=== PATIENT | female | born 1975 | race Caucasian/White ===

== ENCOUNTER 2022-06-11 14:07 | Outpatient (REF) | payer OTHER, SELFPAY ==
[2022-06-14 03:27] LABS: TS Negative Control Passed; TS Panel A 3; TS Panel B 0; TS Positive Control Passed; TSpotTB Negative (Negative)
== END 2022-06-11 14:08 | disposition home or self-care (01) ==
LOC: HO.LAB 14:07
PROVIDERS: PCP Internal Medicine; Visit Provider Internal Medicine
DX: Z11.1 Encounter for screening for respiratory tuberculosis (principal)
CPT/HCPCS: 36415; 86481

== ENCOUNTER 2024-01-20 14:50 | Outpatient (REF) | payer OTHER, SELFPAY ==
--- NOTE | ~2024-01-20 | XR_ITS ---
EXAMINATION: XR KNEE, LEFT CLINICAL INFORMATION: Patient states chronic knee pain for a couple of years, no injury. COMPARISON: None available. TECHNIQUE: 3 views of the left knee. FINDINGS: Mild narrowing of the medial compartment. Small medial marginal osteophytes. Small joint effusion. XR/XR knee LT 3V IMPRESSION: Mild degenerative changes.
[2024-01-20 16:20] LABS: Thyroid Stimulating Hormone 3.18 uIU/mL (0.32-4.0)
[2024-01-22 21:58] LABS: TS Negative Control Passed; TS Panel A 2; TS Panel B 5; TS Positive Control Passed; TSpotTB Borderline (Negative)
== END 2024-01-20 14:51 | disposition home or self-care (01) ==
LOC: HO.LAB 14:50
PROVIDERS: PCP Internal Medicine; Visit Provider Internal Medicine
DX: M17.12 Unilateral primary osteoarthritis, left knee (principal); E03.9 Hypothyroidism, unspecified; E66.9 Obesity, unspecified; F32.5 Major depressive disorder, single episode, in full remission
CPT/HCPCS: 36415; 73562; 84443; 86481

== ENCOUNTER 2024-10-05 11:27 | Day surgery (SDC) | payer OTHER, SELFPAY ==
--- OUTSIDE RECORDS SUMMARY | 2024-09-02 12:06 | XMS_ITS | Patient Health Record ---
Author Organization [facility] Address [address] [place] [address] Care Team Providers Care Sock And Stocking Ironer Name Role Phone Devora Navas Primary Care Provider Martin Burgos Unavailable [phone] ALLERGIES No Known Allergies REASON FOR REFERRAL No Information MEDICATIONS Medication SIG (Take, Route, Frequency, Duration) Notes Start Date End Date Status Sertraline HCl 100 MG Oral for 90 Active Levothyroxine Sodium 112 MCG Oral for 90 Active SOCIAL HISTORY Tobacco Use: Social History Observation Description Date Details (start date - stop date) Never Smoker NA - NA Sex Assigned At : Social History Observation Description Sex Assigned At Unknown Tobacco Use/Smoking Question Answer Notes Patient is a nonsmoker Alcohol Screen Question Answer Notes Did you have a drink containing alcohol in the p ast year? No Points 0 Interpretation Negative PROBLEMS Problem Type ICD Code Onset Dates Problem Status W/U Status Risk SNOMED Code Notes Problem Colon cancer screening (Z12.11) Active confirmed Colon cancer screening (870301141) Problem Encounter for other preprocedural examination (Z01.818) Active confirmed Pre-procedure evaluation check (934849911) VITAL SIGNS Blood pressure diastolic 00 mm Hg 07/14/2024 Height 5 ft 3 in in 07/14/2024 Blood pressure systolic 00 mm Hg 07/14/2024 Weight 176 lbs 07/14/2024 BMI 31.17 kg/m2 07/14/2024 Encounters Encounter Location Date Provider Diagnosis [facility] [address] [place] [address] 02/27/2024 Martin Wang [facility] [address] [place] [address] 07/14/2024 Martin Wang Colon cancer screeni ng Z12.11 and Encounter for other preprocedural examination Z01.818 [facility] [address] [place] [address] 02/25/2024 Martin Wang ASSESSMENTS Encounter Date Diagnosis Assessment Notes Treatment Notes Treatment Clinical Notes 07/14/2024 Colon cancer screening (ICD-10 - Z12.11) 07/14/2024 Encounter for other preprocedural examination (ICD-10 - Z01.818) PLAN OF TREATMENT Future Test Test Name Order Date COLONOSCOPY 07/14/2024 Next Appt Details Provider Name:Martin Wang , 10/05/2024 12:50:00 PM, [address] [facility] , [place], [place], [phone], Insurance Providers Payer Name Payer Address Payer Phone Subscriber Number Group Number Insured Name Patient Relationship to Insured Coverage Start Date Coverage End Date [facility] [address] [address] [place], [place] [id number] BETY CARRANZA Self - patient is the insured MEDICAID OF [facility] [address] [place] [address] [id number] BETY CARRANZA Self - patient is the insured MEDICAL (GENERAL) HISTORY Medical History History ICD Code Denies LA,DM,CVA,Lung disease,renal dise ase Hypothyroidism Anxiety Surgical History Surgery Date(Month/Year)
--- OUTSIDE RECORDS SUMMARY | 2024-09-02 12:07 | XMS_ITS ---
Author Organization [facility] Address [address] [place] [address] Care Team Providers Care Steam Flattener Name Role Phone Devora Navas Primary Care Provider Unavailab Martin Paul Unavailable [phone] REASON FOR VISIT Patient presents today for a colon screening Encounters Encounter Location Date Provider Diagnosis [facility] [address] [place] [address] 02/27/2024 Martin Wang PLAN OF TREATMENT Next Appt Details Provider Name:Martin Wang , 10/05/2024 12:50:00 PM, [address] [place] [address] , [place], [place], [phone],
--- OUTSIDE RECORDS SUMMARY | 2024-09-02 12:07 | XMS_ITS ---
Author Organization [facility] Address [address] [place] [address] Care Team Providers Care Continuous Loft Operator Name Role Phone Devora Navas Primary Care Provider Unavailab Martin Paul Unavailable [phone] REASON FOR VISIT new pt appt Encounters Encounter Location Date Provider Diagnosis [facility] [address] [place] [address] 02/25/2024 Martin Wang PLAN OF TREATMENT Next Appt Details Provider Name:Martin Wang , 10/05/2024 12:50:00 PM, [address] [place] [address] , [place], [place], [phone],
--- OUTSIDE RECORDS SUMMARY | 2024-09-02 12:07 | XMS_ITS | Patient Health Record ---
Author Organization [facility] Address [address] [place] [address] Care Team Providers Care Electric Power Machine Operator Name Role Phone Devora Navas Primary Care Provider Unavailab le Reason For Referral No Information Medications Medication SIG (Take, Route, Frequency, Duration) Notes Start Date End Date Status Brewster 3 Not-Taking Phentermine HCl 30 MG 1 capsule Orally Once a day for 28 days 04/15/2019 Not-Taking Probiotic Active Vitamin B 12 Active Levothyroxine Sodium 88 MCG 1 tablet on an empty stomach in the morning Orally Once a day for 30 day(s) Service Delivery Management Consultant Active Sertraline HCl 100 MG 1 tablet Orally Once a day for 30 day(s) Active Topamax 50 MG 1 tablet Orally bid for 30 day(s) 02/15/2020 Active Topamax 25 MG 1 tablet Orally bid for 30 day(s) Not-Taking Phentermine HCl 37.5 MG 1 tablet Orally Once a day for 28 days 02/15/2020 Active Social History Tobacco Use: Social History Observation Description Date Details (start date - stop date) Never Smoker NA - NA Tobacco Use/Smoking Question Answer Notes Are you a nonsmoker Alcohol Screen (Audit-C) Question Answer Notes Did you have a drink containing alcohol in the p ast year? No Points 0 Interpretation Negative Problems Problem Type SNOMED Code ICD Code Onset Dates Problem Status W/U Status Risk Notes Problem Hypothyroidism (63152168) Hypothyroidism, unspecified (E03.9) Active confirmed Problem Generalized anxiety disorder (28155547) Generalized anxiety disorder (F41.1) Active confirmed Problem BMI 25-29 - overweight (218417648) Body mass index (BMI) 29.0-29.9, adult (Z68.29) Active confirmed Plan Of Treatment No Information Insurance Providers Payer Name Payer Address Payer Phone Subscriber Number Group Number Insured Name Patient Relationship to Insured Coverage Start Date Coverage End Date [facility] Plan I [address] [address] [place] [address] [phone] [id number] Rosalind Clarke Self - patient is the insured [place] [address] [place] [phone] [id number] Rosalind Clarke Self - patient is the insured Medical (General) History Surgical History Surgery Date(Month/Year) Hospitalization History Reason Date(Month/Year)
--- OUTSIDE RECORDS SUMMARY | 2024-09-02 12:07 | XMS_ITS ---
Author Organization [facility] Address [address] [place] [address] Care Team Providers Care Foster Winder Name Role Phone Devora Navas Primary Care Provider Unavailab Martin Paul [phone] ALLERGIES No Known Allergies REASON FOR VISIT patient presents today for discuss colonoscopy MEDICATIONS Medication SIG (Take, Route, Frequency, Duration) [...] screening (Z12.11) Active confirmed Colon cancer screening (123293534) Problem Encounter for other preprocedural examination (Z01.818) Active confirmed Pre-procedure evaluation check (623172018) VITAL SIGNS Blood pressure systolic 00 mm Hg 07/14/19 25 Blood pressure diastolic 00 mm Hg 025 Height 5 ft 3 in in 07/14/2024 Weight 176 lbs 07/14/2024 BMI 31.17 kg/m2 07/14/2024 Encounters Encounter Location Date Provider Diagnosis [facility] [address] [place] [address] 07/14/2024 Martin Wang Colon cancer screeni ng Z12.11 and Encounter for other preprocedural examination Z01.818 ASSESSMENTS Encounter Date Diagnosis Assessment Notes Treatment Notes Treatment Clinical Notes 07/14/2024 Colon cancer screening (ICD-10 - Z12.11) 07/14/2024 Encounter for other preprocedural examination (ICD-10 - Z01.818) PLAN OF TREATMENT Future Test Test Name Order Date COLONOSCOPY 07/14/2024 Next Appt Details Follow Up: prn, Reason: Provider Name:Martin Wang , 10/05/2024 12:50:00 PM, [address] [place] [address], [phone], Progress Notes * Examination Category Sub-Category Detail Notes General Examination GENERAL APPEARANCE: pleasant , well nourished, well developed, in no acute distress HEAD: EYES: sclera non-icteric EARS: NOSE: THROAT: NECK/THYROID: no cervical lymphade nopathy, neck supple HEART: S1, S2 normal CHEST: LUNGS: clear to auscultatio n bilaterally ABDOMEN: normal bowel sounds, no guarding or rigidity, no guarding or rigidity, no masses palpable, soft, nontender, nondistended NEUROLOGIC: alert and oriented SKIN: nonjaundiced, no spi wayne angiomata EXTREMITIES: no edema PERIPHERAL PULSES: BACK: BREASTS: MUSCULOSKELETAL: MALE GENITOURINARY: LYMPH NODES: RECTAL EXAM: FEMALE GENITOURINARY: ORAL CAVITY: mucosa moist
[2024-10-01 13:31] VITALS: BMI 31.2
--- NOTE | 2024-10-02 09:26 | HO.ANESPROP2 ---
Documented by User: Shraddha Juárez NP 10/02/24 09:27 HPI - Anesthesia Eval Consult details Narrative: 49yo F for Colonoscopy [facility] Past Medical History Medical History Menopause Anxiety Hypothyroid Surgical History Surgical History No pertinent past surgical history Social History Social History Household Members Other:: mother and daughter Housing Other:: [facility] Are you a primary patient care director to a significant other at home: No Do you presently have visiting nurse or other home services: No Patient Tobacco Use Status: Never used Tobacco Have you been hit, kicked, punched, or otherwise hurt by someone within the past year? If so, by whom?: No Are you DNR?: No Advance Directives: No Advance Directives Information Provided: Yes Recently lost weight without trying: No Nutrition Risks: No Nutritional Risk Patient : No Meds Allergies Allergy/AdvReac Type Severity Reaction Status Date / Time No Known Allergies Allergy Verified 10/01/24 13:32 Home Medications ?Medication ?Instructions ?Recorded ?Confirmed ?Last Taken ?Type levothyroxine 112 mcg tablet 112 mcg PO DAILY 10/01/24 10/01/24 Unknown History phentermine 37.5 mg capsule 37.5 mg PO DAILY 10/01/24 10/01/24 Unknown History sertraline 100 mg tablet 100 mg PO DAILY 10/01/24 10/01/24 Unknown History Exam Height,Weight and Vital Signs: Height 5 ft 3 in Weight 79.832 kg Assessment and Plan Assessment Anesthesia Assessment: Chart Reviewed Documented by User: Maru Pittman MD 10/05/24 12:10 [facility] Past Medical History Medical History Menopause Anxiety Hypothyroid Family History Family history of problems with anesthesia: No Surgical History Surgical History No pertinent past surgical history History of Problems with Anesthesia: No Social History Social History Household Members Other:: mother and daughter Housing Other:: [facility] Are you a primary patient care director to a significant other at home: No Do you presently have visiting nurse or other home services: No Patient Tobacco Use Status: Never used Tobacco Have you been hit, kicked, punched, or otherwise hurt by someone within the past year? If so, by whom?: No Are you DNR?: No Advance Directives: No Advance Directives Information Provided: Yes Recently lost weight without trying: No Nutrition Risks: No Nutritional Risk Patient : No Meds Allergies Allergy/AdvReac Type Severity Reaction Status Date / Time No Known Allergies Allergy Verified 10/01/24 13:32 Home Medications ?Medication ?Instructions ?Recorded ?Confirmed ?Last Taken ?Type levothyroxine 112 mcg tablet 112 mcg PO DAILY 10/01/24 10/01/24 Unknown History phentermine 37.5 mg capsule 37.5 mg PO DAILY 10/01/24 10/01/24 Unknown History sertraline 100 mg tablet 100 mg PO DAILY 10/01/24 10/01/24 Unknown History Exam Airway Mallampati Class: II TM Dist: >3cm Neck ROM: Full Heart: rrr Lungs: cta Assessment and Plan Assessment Anesthesia Assessment: Anesthesia Plan Discussed Final Anesthetic Review Family History of Problems with Anesthesia: No History of Problems with Anesthesia: No NPO: Yes ASA Class: II Final Preanesthetic Review: No Changes in Pt Med Stat, Meds/Allgs Chart Reviewed and Consent Obtained/Reviewed Patient Risk: Low Procedure Risk: Low Anesthetic Plan Anesthetic Plan: MAC: Disposition: Standard PACU
--- NOTE | 2024-10-05 11:40 | HO.ANESPROP2 ---
REPLACED BY [facility] Past Medical History Medical History Anxiety Hypothyroid Functional capacity: independent ambulation Patient : No Family History Family history of problems with anesthesia: No Surgical History Surgical History No pertinent past surgical history History of Problems with Anesthesia: No Social History Social History Household Members Other:: mother and daughter Housing Other:: [facility] Are you a primary critical care paramedic to a significant other at home: No Do you presently have visiting nurse or other home services: No Patient Tobacco Use Status: Never used Tobacco Meds Allergies Allergy/AdvReac Type Severity Reaction Status Date / Time No Known Allergies Allergy Verified 10/01/24 13:32 Home Medications ?Medication ?Instructions ?Recorded ?Confirmed ?Last Taken ?Type levothyroxine 112 mcg tablet 112 mcg PO DAILY 10/01/24 10/01/24 Unknown History phentermine 37.5 mg capsule 37.5 mg PO DAILY 10/01/24 10/01/24 Unknown History sertraline 100 mg tablet 100 mg PO DAILY 10/01/24 10/01/24 Unknown History Exam Height,Weight and Vital Signs: Height 5 ft 3 in Weight 79.832 kg Airway TM Dist: >3cm Neck ROM: Full Heart: RRR Lungs: CTA Assessment and Plan Assessment Anesthesia Assessment: Anesthesia Plan Discussed Final Anesthetic Review Family History of Problems with Anesthesia: No History of Problems with Anesthesia: No NPO: Yes ASA Class: II Final Preanesthetic Review: Meds/Allgs Chart Reviewed, Consent Obtained/Reviewed and Anes Risks/Benef Reviewed Patient Risk: Low Procedure Risk: Low Anesthetic Plan Anesthetic Plan: MAC: Disposition: Standard PACU
[2024-10-05] MEDS: Lactated Ringers 1,000 ML 100 ML IVCONT (11:47)
[2024-10-05 12:04] VITALS: BP 122/78; PULSE 82; RESP 18; TEMP 36.6; O2SAT 96
[2024-10-05 12:06] VITALS: BMI 31.9
--- NOTE | 2024-10-05 12:08 | PC.NURSE ---
dr. adkins aware that patient drank black tea at 0800. ok to proceed.
[2024-10-05 13:03] VITALS: BP 99/64; PULSE 79; RESP 16; TEMP 36.6; O2SAT 97
--- NOTE | 2024-10-05 13:07 | PM.OP ---
Brief Operative Note Date of Service: 10/05/24 Pre-op diagnosis: Screening Post-op diagnosis: other (Internal hemorrhoids) Procedure: Colonoscopy to the cecum Surgeon: Martin Wang MD Anesthesia: MAC Was an Gizzard Skin Remover used for this Procedure?: No Estimated blood loss (mL): 0 Pathology: none sent Condition: stable Disposition: PACU
[2024-10-05 13:18] VITALS: BP 110/74; PULSE 67; RESP 16; O2SAT 98
[2024-10-05 13:34] VITALS: BP 114/68; PULSE 60; RESP 16; TEMP 36.6; O2SAT 98
--- NOTE | 2024-10-05 13:40 | HO.POSTANES ---
Post Anesthesia Evaluation Post Anesthesia Evaluation Date of Service: 10/05/24 Vital Signs: Vital Signs Temp Pulse Resp BP Pulse Ox O2 Del Method 10/05/24 13:34 97.8 F 60 16 114/68 98 Room Air 10/05/24 13:18 67 16 110/74 98 Room Air 10/05/24 13:03 97.8 F 79 16 99/64 97 Room Air 10/05/24 12:04 97.9 F 82 18 122/78 96 Room Air Anesthesia: Monitored Mental Status: Awake Pain Control: Satisfactory Nausea/Vomiting: None Hydration: Adequate Anesthesia-Related Issues: No Anes. Related Issues
--- NOTE | 2024-10-05 23:01 | OP_ITS ---
DATE OF SERVICE: 10/05/2024 SURGEON: Martin Wang MD INDICATIONS: The patient presents for evaluation of colorectal cancer screening. Full consent has been obtained from her for this, including risks of bleeding and perforation. PREOPERATIVE DIAGNOSIS: Colorectal cancer screening. POSTOPERATIVE DIAGNOSIS: PROCEDURE PERFORMED: Colonoscopy to the cecum. ESTIMATED BLOOD LOSS: COMPLICATIONS: ANESTHESIA: Medication used, monitored anesthesia care. ASSISTANTS: SPECIMENS: POSTOPERATIVE DIAGNOSES: Colorectal cancer screening, internal hemorrhoids. DESCRIPTION OF PROCEDURE: The patient was placed in the left lateral decubitus position. The digital rectal exam revealed no abnormalities. The Olympus video pediatric colonoscope was entered into the rectum and advanced easily to the cecum. Once in the cecum, I did identify normal-appearing cecal pouch with appendiceal orifice and a normal-appearing ileocecal valve. The entire cecum and ileocecal valve appeared normal. There was transillumination of light deep in the right lower quadrant. The scope was then slowly withdrawn assessing all mucosal surfaces carefully. Preparation was excellent. I did not visualize any sign of polyps, colitis, nor angiodysplasia. In the rectum, scope was retroflexed visualizing some small internal hemorrhoids, but no other pathology. The rectal mucosa appeared normal. The scope was straightened and withdrawn from the patient. She tolerated the procedure well and was returned to the recovery area in stable condition. IMPRESSION: Normal colonoscopy other than small internal hemorrhoids. PLAN: Given today's negative exam and negative family history, I would recommend a followup colonoscopy in 10 years for further screening. She will otherwise see me on a p.r.n. basis. This has been discussed with her daughter. Martin Wang MD RMCharlette/COLLIN / [phone]
== END 2024-10-05 14:08 | disposition home or self-care (01) ==
PROVIDERS: PCP Internal Medicine; Visit Provider Internal Medicine
PROC: 0DJD8ZZ Inspection of Lower Intestinal Tract, Via Natural or Artificial Opening Endoscopic (ICD-10-PCS; CPT 45378; principal; 2024-10-05 11:40)
DX: Z12.11 Encounter for screening for malignant neoplasm of colon (principal); K64.8 Other hemorrhoids; E03.9 Hypothyroidism, unspecified; F41.9 Anxiety disorder, unspecified; Z79.899 Other long term (current) drug therapy
CPT/HCPCS: 45378; J2003; J2704